=== PATIENT | male | born 1960 | race African-American/Black ===

== ENCOUNTER 2020-01-27 14:08 | Emergency (ER) | payer BC, OTHER ==
[2020-01-27 16:53] LABS: #Basophils 0.1 thou/uL (0.0-0.2); #Lymphocytes 2.3 thou/uL (1.20-3.40); #Monocytes 0.4 thou/uL (0.11-0.59); #Neutrophils 2.5 thou/uL (1.40-6.50); %Eosinophils 0.8 % (0.0-10.0); %Lymphocytes 43.1 % (21.0-51.0); %Monocytes 7.5 % (0.0-10.0); %Neutrophils 47.6 % (42.0-75.0); Hemoglobin 13.2 g/dL (14.0-18.0); Mean Corpuscular HGB CONC 30.7 g/dL (32.0-36.0); Mean Corpuscular Hemoglobin 25.8 pg (27.0-31.0); Mean Corpuscular Volume 83.8 fL (78.0-98.0); Mean Platelet Volume 8.6 fL (7.4-10.4); Platelet Count 200 thou/uL (130-400); RBC Distribution Width 14.3 % (11.5-14.5); Red Blood Cell (RBC) Count 5.13 mill/uL (4.70-6.10); White Blood Cell (WBC) Count 5.3 thou/uL (4.8-10.8)
[2020-01-27] MEDS ORDERED: Lidocaine 1% w/Epinephrine 1:100K 20 ML VIAL ONE (17:11)
[2020-01-27] MEDS ORDERED: Lidocaine 1% PF 5 ML VIAL ONE (17:12)
[2020-01-27 17:18] LABS: ALT (SGPT) 33 U/L (8-55); AST (SGOT) 26 U/L (5-34); Albumin 4.2 g/dL (3.5-5.0); Alkaline Phosphatase 135 U/L (40-110); Anion Gap 13 mmol/L (10-20); BUN (Urea Nitrogen) 17 mg/dL (8.4-25.7); Bilirubin, Total 0.4 mg/dL (0.2-1.2); Calc. Creatinine Clearance 0 mL/min (70-130); Calcium 8.9 mg/dL (7.8-10.44); Carbon Dioxide 25 mmol/L (22-29); Chloride 106 mmol/L (98-107); Estimated GFR-MDRD Greater than 90; Globulin 2.9 g/dL (2.4-3.5); Glucose 100 mg/dL (70-105); Potassium 3.9 mmol/L (3.5-5.1); Protein, Total 7.1 g/dL (6.0-8.3); Sodium 140 mmol/L (136-145)
[2020-01-27] MEDS ORDERED: Bupivacaine 0.5% 10 ML VIAL ONE (17:47)
== END 2020-01-27 19:28 | disposition home or self-care (01) ==
LOC: ERS 14:08
DX: S67.192A Crushing injury of right middle finger, initial encounter (principal); S62.632B Displaced fracture of distal phalanx of right middle finger, initial encounter for open fracture; S66.322A Laceration of extensor muscle, fascia and tendon of right middle finger at wrist and hand level, initial encounter; I10 Essential (primary) hypertension; Z79.899 Other long term (current) drug therapy; W31.82XA Contact with other commercial machinery, initial encounter
CPT/HCPCS: 12002; 80053; 85025; 93005; 96372; J3490